=== PATIENT | female | born 1990 | race Caucasian/White ===

== ENCOUNTER 2022-02-02 07:59 | Emergency (ER) | payer MEDICAID, SELFPAY ==
[2022-02-02 08:02] VITALS: BP 124/94; PULSE 101; RESP 17; TEMP 36.3; O2SAT 96; BMI 18.5
--- NOTE | 2022-02-02 08:17 | ED.RN ---
PT. REMEMBERS FEELING FUNNY AND TEXTING BOSS 'I NEED HELP' AND THEN WOKE UP AT HOME.
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
[2022-02-02] MEDS: Diphth,Pertuss(Acell),Tet Vac 0.5 ML Vial IM (08:48)
[2022-02-02] MEDS: LORazepam 1 MG Tablet PO (11:27)
--- NOTE | 2022-02-02 12:35 | ED.RN ---
nurse in with patient for one on one care. pt is interested in detox. dr gilman aware and to address
== END 2022-02-02 13:48 | disposition home or self-care (01) ==
LOC: EDREF 10:46 → ED 11:00
PROVIDERS: Emergency Provider Emergency Medicine; Visit Provider Emergency Medicine
DX: F10.20 Alcohol dependence, uncomplicated (principal); T14.8XXA Other injury of unspecified body region, initial encounter; Y04.8XXA Assault by other bodily force, initial encounter; Z23 Encounter for immunization
CPT/HCPCS: 90715; 99282

== ENCOUNTER 2022-02-02 10:41 | Outpatient (REF) | payer SELFPAY | END 2022-02-02 23:59 | disposition home or self-care (01) | LOC: ED 10:41 | PROVIDERS: Visit Provider Emergency Medicine | DX: Z04.41 Encounter for examination and observation following alleged adult rape (principal) ==

== ENCOUNTER 2022-02-06 08:28 | Inpatient (IN) | payer MEDICAID, SELFPAY ==
[2022-02-06] VITALS (7 sets, daily range): BP systolic 108–131; BP diastolic 74–95; PULSE 63–92; RESP 14–18; TEMP 35.9–37.1; O2SAT 99–100; BMI 18.5; BMI 19.1
--- NOTE | 2022-02-06 08:48 | EDS_ITS ---
HPI History of Present Illness Chief Complaint: Substance Abuse Informant: patient Narrative Narrative: Patient requesting detox from alcohol. She does not use any other substances, but she used to be an IV drug user, which is how she acquired hepatitis C. Years ago she stopped using and transitioned to alcohol, which became a constant issue about 3 years ago, and since then she has been drinking about a pint of hard liquor per day. Her last use was last night, she is feeling shaky like she is in withdrawal this morning which is how she feels every morning. She has not gone through detox for alcohol before. She is not , her last normal menstrual cycle started today. She has some mild abdominal cramping but nothing major, she states this is typical for her cycle. She has had no seizures in her life nor has she this morning. [facility] Medical History Alcoholism Hepatitis C, chronic Home Medications NK 02/06/22 [History Last Taken Unknown] Allergy/AdvReac Type Severity Reaction Status Date / Time No Known Allergies Allergy Verified 02/06/22 08:32 Social History household members: significant other Smoking Status: Current every day smoker tobacco type: cigarettes alcohol intake: current substance use type: does not use ROS ROS ED Constitutional Constitutional ED: Reports malaise; Denies chills or fever(s) Eyes Eyes: Denies change in vision or diplopia ENT ENT ED: Denies rhinorrhea or sore throat Cardiovascular Cardiovascular: Denies chest pain or palpitations Respiratory/Chest Respiratory/Chest: Denies cough or dyspnea Gastrointestinal Gastrointestinal: Reports nausea; Denies abdominal pain, diarrhea or vomiting Genitourinary Genitourinary ED: Denies dysuria or hematuria Musculoskeletal Musculoskeletal: Denies back pain or neck pain Integumentary Denies abscess or rash Neurologic Neurologic: Denies headache(s), paresthesias or weakness Psychiatric Psychiatric: Reports anxiety; Denies suicidal thoughts EXAM Physical Exam Const Vital Signs: 02/06/22 08:30 Temperature 96.6 F L Temperature Source Temporal Pulse Rate 92 Respiratory Rate 14 Blood Pressure 118/95 H Blood Pressure Mean 102 Pulse Ox 99 Oxygen Delivery Method Room Air Positive well nourished and well developed General Appearance ED: well developed and NAD HEENT Reports moist mucous membranes normocephalic and atraumatic Eyes PERRL and EOMs intact bilaterally Neck full ROM and supple Resp normal respiratory effort and clear to auscultation bilaterally Cardio regular rate, regular rhythm and no murmurs GI non-tender and non-distended Auscultation: normoactive bowel sounds Palpation: soft Back/Spine no CVA tenderness General Back: other FROM Extremity normal to inspection General Extremety ED: Negative for edema, pulses abnormal or tenderness General Extremity: Negative for edema or pulses abnormal Neuro oriented x3, CN's II-XII intact bilaterally and no sensory deficits noted Sensorium / Orientation: awake and alert Motor Exam: strength 5/5 throughout Skin no rashes or lesions noted and no wounds MDM MDM MDM Narrative Medical decision making narrative: Labs were obtained, is negative, she was treated with phenobarbital and Zofran and that helped her feel little better. Stable for admission for detox. Discussed with hospitalist. Lab Data Attestation: I reviewed the patient's lab results. Labs: Laboratory Results - last 24 hr 02/06/22 02/06/22 02/06/22 09:40 09:40 09:40 WBC 4.6 RBC 3.84 L Hgb 13.7 Hct 39.2 MCV 102.1 H MCH 35.7 H MCHC 34.9 RDW Std Deviation 45.1 H RDW Coeff of Bobbi 12.0 Plt Count 101 L MPV 10.6 Immature Gran % (Auto) 0.200 Neut % (Auto) 69.2 Lymph % (Auto) 20.2 [place] % (Auto) 6.7 Eos % (Auto) 2.0 Baso % (Auto) 1.7 H Absolute Neuts (auto) 3.2 Absolute Lymphs (auto) 0.93 Nucleated RBC % 0 PT 13.1 INR 1.0 Sodium 140 Potassium 3.7 Chloride 103 Carbon Dioxide 31.0 Anion Gap 6 BUN 7 Creatinine 0.49 L Estim Creat Clear Calc 127.47 Est GFR (MDRD) Af Amer 188 Est GFR (MDRD) Non-Af 155 BUN/Creatinine Ratio 14.3 Glucose 94 Calcium 9.0 Total Bilirubin 1.50 H AST 368 H ALT 139 H Alkaline Phosphatase 110 Total Protein 7.2 Albumin 3.6 Globulin 3.6 Albumin/Globulin Ratio 1.0 Serum , Qual Ur Drug Screen Comment Ethyl Alcohol 02/06/22 02/06/2222 09:40 09:40 10:30 WBC RBC Hgb Hct MCV MCH MCHC RDW Std Deviation RDW Coeff of Bobbi Plt Count MPV Immature Gran % (Auto) Neut % (Auto) Lymph % (Auto) [place] % (Auto) Eos % (Auto) Baso % (Auto) Absolute Neuts (auto) Absolute Lymphs (auto) Nucleated RBC % PT INR Sodium Potassium Chloride Carbon Dioxide Anion Gap BUN Creatinine Estim Creat Clear Calc Est GFR (MDRD) Af Amer Est GFR (MDRD) Non-Af BUN/Creatinine Ratio Glucose Calcium Total Bilirubin AST ALT Alkaline Phosphatase Total Protein Albumin Globulin Albumin/Globulin Ratio Serum , Qual NEGATIVE Ur Drug Screen Comment Ethyl Alcohol < 3.0 Discharge Plan Dx/Rx/DC Orders Clinical Impression: Alcohol dependence, Alcohol withdrawal Disposition Disposition: Acute Care Hospital [facility]
[2022-02-06 09:48] LABS: Absolute Lymphocyte Count 0.93 X10^3/uL (0.83-4.51); Absolute Neutrophil Count 3.2 X10^3/uL (2.0-7.7); Basophil# 0.08 X10^3/uL; Basophil% 1.7 % (0-1); Eosinophil# 0.09 X10^3/uL; Hematocrit 39.2 % (37-47); Hemoglobin 13.7 g/dL (12.0-15.0); Lymphocyte # 0.93 X10^3/ul (0.83-4.51); Lymphocyte % 20.2 % (19-41); Mean Corp Hgb Conc 34.9 g/dL (32-36); Mean Corpuscular Hgb 35.7 pg (27.0-32.0); Mean Corpuscular Volume 102.1 fL (81-99); Mean Platelet Vol. 10.6 fl (6.2-12.0); Monocyte# 0.31 X10^3/uL; Monocyte% 6.7 % (0-10); NRBC Flagged by Analyzer 0 % (0-5); Neutrophil # 3.19 X10^3/uL (2.7-7.7); Neutrophil % 69.2 % (47-70); Platelet Count 101 K/mm3 (150-450); RBC Distribution Width SD 45.1 fl (35.1-43.9); Red Blood Count 3.84 M/mm3 (4.2-5.4); White Blood Count 4.6 K/mm3 (4.4-11.0)
[2022-02-06 09:58] LABS: Prothrombin Time (Protime)PT. 13.1 SECONDS (11.7-14.9)
[2022-02-06 10:03] LABS: AST(SGOT) 368 U/L (15-37); Alanine Aminotransfer ALT/SGPT 139 U/L (13-56); Albumin, Serum 3.6 g/dL (3.2-5.0); Alkaline Phosphatase 110 U/L (45-117); Anion Gap 6 (5-15); BUN 7 mg/dL (7-18); BUN/Creat Ratio 14.3 RATIO (10-20); Chloride 103 mmol/L (98-107); Creatinine, Serum 0.49 mg/dL (0.55-1.02); EST Glomerular Filtration Rate 155 mL/min (>60); Est Glom Filt Rate - Afr Amer 188 mL/min (>60); Estimated Creatinine Clearance 127.47 ml/min; Globulin 3.6 g/dL (2.2-4.2); Glucose 94 mg/dL (74-106); Potassium 3.7 mmol/L (3.5-5.1); Protein, Total 7.2 g/dL (6.4-8.2); Sodium Level 140 mmol/L (136-145)
[2022-02-06 10:09] LABS: Internal QC Validated? YES +Cl - CLEAR BKGD; Pregnancy, Serum, hCG Quali. NEGATIVE Negative
[2022-02-06] MEDS: Ondansetron ODT 4 MG Tablet 8 MG PO (10:16)
[2022-02-06] MEDS: Phenobarbital 32.4 MG Tablet 97.2 MG PO ×5 (10:16→22:52)
[2022-02-06 10:18] LABS: Alcohol, Blood (Medical)-Serum < 3.0 mg/dL
--- NOTE | 2022-02-06 10:51 | HP.PCM.HOS_ITS ---
[facility] - General General Date of Admission: 02/06/22 Date of Service: 02/06/22 Chief Complaint: Alcohol withdrawal symptoms including shaking, nausea. HPI Narrative ARTURO COVINGTON, is a 31 F with history of chronic alcohol use with unsuccessful attempts of quitting came to ED for acute alcohol withdrawal symptoms. Patient wants to quit and wants help. She started drinking alcohol at the age of 11 like experimenting then progressed to drink after work and then daily a pint or more of bourbon whiskey for for last 3 years. Denies history of seizure, DT. Patient also had a history of IV heroin, opioid use, crack cocaine in the past. Denies history of endocarditis or deep tissue infection or osteomyelitis. She occasionally smokes weeds. She also sometimes smokes 2 to 3 cigarettes daily daily. About 2 to 3 months ago she went to [facility] and was told that she has fibrosis and fatty liver. Her liver tests were elevated and she had jaundice. She denies history of GI bleed or ascites. She states he had kidney infection at that time and was treated with antibiotic. Denies any major gynecological problem. Has normal monthly menstrual cycle but sometimes excessive bleeding. History of chronic hepatitis C. [facility] Medical History Alcoholism Hepatitis C, chronic Home Medications NK 02/06/22 [History Last Taken Unknown] Allergy/AdvReac Type Severity Reaction Status Date / Time No Known Allergies Allergy Verified 02/06/22 08:32 Social History household members: significant other Smoking Status: Current every day smoker tobacco type: cigarettes alcohol intake: current substance use type: does not use ROS ROS Narrative Constitutional: Reports fatigue and weakness. No fever HEENT: Reports systems reviewed and no addt'l complaints, except as documented Respiratory/Chest: Denies chest pain, shortness of breath at rest or with exertion Gastrointestinal: Denies coffee ground emesis, hematemesis or vomiting. No abdominal pain or distention. Genitourinary: Denies burning urination or new urinary tract symptoms Musculoskeletal: Mild generalized muscle and joint pain. Neurologic: Denies seizure-like activity skin: No ulcer. No rash Endocrinology: Reports systems reviewed and no addt'l complaints, except as documented Hematologic/Lymphatic: Reports systems reviewed and no addt'l complaints, except as documented Rest 14 ROS are negative except as mentioned in HPI Vital Signs Vital Signs Vital Signs: 02/06/22 08:30 Temperature 96.6 F L Temperature Source Temporal Pulse Rate 92 Respiratory Rate 14 Blood Pressure 118/95 H Blood Pressure Mean 102 Pulse Ox 99 Oxygen Delivery Method Room Air Weight Weight: 108 lb Body Mass Index (BMI) 18.5 Physical Exam Narrative General: Alert, Oriented x3, Cooperative HEENT: Atraumatic, PERRLA, EOMI, Normocephalic Oral: Oral mucosa dry. No Gingival or Mucosal Lesions/ Ulcerations Neck: Supple, No JVD, Negative Carotid Bruits Lungs: Air entry equal in bilateral lung bases. No crepitation/rhonchi Cardiovascular: Regular rate, Regular Rhythm, Normal S1, Normal S2, No murmurs Abdomen: Mild tenderness over epigastric region. Liver not enlarged. No fluid thrill/shifting dullness. Bowel Sounds Present, Soft. : No renal angle tenderness. No suprapubic tenderness. Extremities: No edema, Capillary Refill Less than 3 Seconds Skin: No rashes, No breakdown Musculoskeletal: No Tenderness to Palpation of Joints or Extremities. Muscle strength 5/5 at major joints Neurological: Cranial nerves II-XII grossly intact, DTR 2+/4. No focal neurological deficit. Psych/Mental Status: Normal Affect, Appropriate. Results Lab / Micro Data Result Diagrams: 02/06/22 09:40 02/06/22 09:40 Labs: Laboratory Results - last 24 hr 02/06/22 09:40: WBC 4.6, RBC 3.84 L, Hgb 13.7, Hct 39.2, MCV 102.1 H, MCH 35.7 H , MCHC 34.9, RDW Std Deviation 45.1 H, RDW Coeff of Bobbi 12.0, Plt Count 101 L, MPV 10.6, Immature Gran % (Auto) 0.200, Neut % (Auto) 69.2, Lymph % (Auto) 20.2, Dukes % (Auto) 6.7, Eos % (Auto) 2.0, Baso % (Auto) 1.7 H, Absolute Neuts (auto) 3.2, Absolute Lymphs (auto) 0.93, Nucleated RBC % 0 02/06/22 09:40: PT 13.1, INR 1.0 02/06/22 09:40: Sodium 140, Potassium 3.7, Chloride 103, Carbon Dioxide 31.0, Anion Gap 6, BUN 7, Creatinine 0.49 L, Estim Creat Clear Calc 127.47, Est GFR (MDRD) Af Amer 188, Est GFR (MDRD) Non-Af 155, BUN/Creatinine Ratio 14.3, Glucose 94, Calcium 9.0, Total Bilirubin 1.50 H, AST 368 H, ALT 139 H, Alkaline Phosphatase 110, Total Protein 7.2, Albumin 3.6, Globulin 3.6, Albumin/Globulin Ratio 1.0 02/06/22 09:40: Ethyl Alcohol < 3.0 02/06/22 09:40: Serum , Qual NEGATIVE 02/06/22 10:30: Ur Drug Screen Comment Assessment & Plan Assessment/Plan (1) Alcohol withdrawal: PLAN: Plan This 31-year-old female is being admitted for stabilization of acute alcohol withdrawal symptoms. 1. Acute alcohol withdrawal syndrome with history of chronic alcohol use, dependence and tolerance: Patient is being admitted Medr. On order set of phenobarbital along with other medication for stabilization of alcohol withdrawal symptoms. [facility] monitoring. 180 automotive quality manager consult. Patient is very interested in quitting alcohol. 2 chronic alcoholic hepatitis: AST and ALT are elevated, and present to his 2: 1 ratio. Patient states her liver enzymes were elevated about 3 months ago, labs done in [facility]. She also had ultrasound abdomen which shows fibrosis and fatty liver. We will try to obtain medical record from [facility]. Monitor liver function daily. Total bilirubin 1.5. 3. Chronic nicotine use/cigarette smoking and marijuana: U tox positive for cannabinoids. 4. Chronic hepatitis C: Advised follow-up with Dr. Reich as an outpatient for treatment of chronic hepatitis C. VTE prophylaxis: Low risk. Early ambulation encouraged. Full code Charges/Coding Visit Charges Inpatient E&M: 08416 Init Hosp L3
--- NOTE | 2022-02-06 10:52 | NURSING ---
MED SURG ISELA ALCOHOL DEPENDENCE
[2022-02-06 10:53] LABS: Amphetamine Urine VISTA NEGATIVE (<1000 ng/mL); Barbiturate Urine VISTA NEGATIVE (< 200 ng/mL); Benzodiazepine Urine VISTA NEGATIVE (< 200 ng/mL); Cocaine Urine VISTA NEGATIVE (< 300 ng/mL); Ecstacy Urine VISTA NEGATIVE (< 500 ng/mL); Methadone Urine VISTA NEGATIVE (< 300 ng/mL); PCP Urine VISTA NEGATIVE (< 25 ng/mL); THC Urine VISTA POSITIVE (< 50 ng/mL); Vista UDS pH Range 8
[2022-02-06] MEDS: hydrOXYzine PAM 25 MG Capsule 50 MG PO ×2 (12:30→21:33)
[2022-02-06] MEDS: Pantoprazole Sodium 40 MG Tablet PO ×2 (12:30→19:56)
[2022-02-06] MEDS: Gabapentin 300 MG Capsule PO ×2 (13:49→22:52)
[2022-02-06] MEDS: Lactated Ringers 1,000 ML 125 ML IV (14:39)
[2022-02-06] MEDS: traZODone 100 MG Tablet PO (22:52)
[2022-02-06] MEDS: Ibuprofen 400 MG Tablet PO (22:52)
--- NOTE | 2022-02-06 23:01 | EKG12_ITS ---
Test Reason : CP Blood Pressure : / mmHG Vent. Rate : 066 BPM Atrial Rate : 066 BPM P-R Int : 130 ms QRS Dur : 074 ms QT Int : 424 ms P-R-T Axes : 064 078 068 degrees QTc Int : 444 ms Normal sinus rhythm Normal ECG No previous ECGs available Confirmed by ESTEFANIA MELENDEZ, LUCAS ([id number]), technical writer and editor JORDI SANTANA ([id number]) on 02/08/2022 9:41:27 AM Referred By: ISELA Confirmed By:LUCAS MAC MD
[2022-02-07 00:34] LABS: Troponin-I HS 4 pg/mL (3.0-54.0)
[2022-02-07 02:33] LABS: Troponin-I HS 4 pg/mL (3.0-54.0)
[2022-02-07 03:14] VITALS: BP 87/63; PULSE 56; RESP 16; TEMP 36.4; O2SAT 99
[2022-02-07] MEDS: Phenobarbital 32.4 MG Tablet 97.2 MG PO ×4 (03:20→15:33)
[2022-02-07 06:42] VITALS: BP 102/75; PULSE 59; RESP 16; TEMP 36.7; O2SAT 99
[2022-02-07] MEDS: Folic Acid 1 MG Tablet PO (06:46)
[2022-02-07] MEDS: Thiamine Hydrochloride 100 MG Tablet PO (06:46)
[2022-02-07 07:08] LABS: Troponin-I HS 4 pg/mL (3.0-54.0)
[2022-02-07 08:17] VITALS: BP 104/69; PULSE 54; RESP 16; TEMP 36.8; O2SAT 98
[2022-02-07] MEDS: Pantoprazole Sodium 40 MG Tablet PO (09:07)
--- NOTE | 2022-02-07 09:32 | PN.HOSP_ITS ---
Subjective Subjective Seen and examined. Follow-up for acute alcohol withdrawal syndrome. Patient is still has anxiety attack feeling restless but denies hallucinations or seizures. Objective Data Objective Data Vital Signs: Vital Signs Temp Pulse Resp BP Pulse Ox O2 Del Method 98.3 F 54 L 16 104/69 98 Room Air 02/07/22 08:17 02/07/22 08:17 02/07/22 08:17 02/07/22 08:17 02/07/22 08:17 02/07/22 08:17 Oxygen Delivery Method Room Air Weight: 111 lb 12.39 oz Body Mass Index (BMI) 19.1 Intake & Output: Intake and Output for Last 24 Hours 02/05/22 02/06/22 02/07/22 23:59 23:59 23:59 Intake Total 1000 / 1000 Balance 1000 / 1000 Lab / Micro Data Result Diagrams: 02/06/22 09:40 02/06/22 09:40 Labs: Laboratory Results - last 24 hr 02/06/22 09:40: WBC 4.6, RBC 3.84 L, Hgb 13.7, Hct 39.2, MCV 102.1 H, MCH 35.7 H , MCHC 34.9, RDW Std Deviation 45.1 H, RDW Coeff of Bobbi 12.0, Plt Count 101 L, MPV 10.6, Immature Gran % (Auto) 0.200, Neut % (Auto) 69.2, Lymph % (Auto) 20.2, Edgar % (Auto) 6.7, Eos % (Auto) 2.0, Baso % (Auto) 1.7 H, Absolute Neuts (auto) 3.2, Absolute Lymphs (auto) 0.93, Nucleated RBC % 0 02/06/22 09:40: PT 13.1, INR 1.0 02/06/22 09:40: Sodium 140, Potassium 3.7, Chloride 103, Carbon Dioxide 31.0, Anion Gap 6, BUN 7, Creatinine 0.49 L, Estim Creat Clear Calc 127.47, Est GFR (MDRD) Af Amer 188, Est GFR (MDRD) Non-Af 155, BUN/Creatinine Ratio 14.3, Glucose 94, Calcium 9.0, Total Bilirubin 1.50 H, AST 368 H, ALT 139 H, Alkaline Phosphatase 110, Total Protein 7.2, Albumin 3.6, Globulin 3.6, Albumin/Globulin Ratio 1.0 02/06/22 09:40: Ethyl Alcohol < 3.0 02/06/22 09:40: Serum , Qual NEGATIVE 02/06/22 10:30: Urine Opiates Screen NEGATIVE, Urine Methadone Screen NEGATIVE, Ur Barbiturates Screen NEGATIVE, Ur Phencyclidine Scrn NEGATIVE, Ur Amphetamines Screen NEGATIVE, MDMA (Ecstasy) Screen NEGATIVE, U Benzodiazepines Scrn NEGATIVE, Urine Cocaine Screen NEGATIVE, U Cannabinoids Screen POSITIVE H, Ur Drug Screen Comment 02/06/22 23:52: Troponin I High Sens 4 02/07/22 02:05: Troponin I High Sens 4 02/07/22 06:00: Troponin I High Sens 4 Physical Exam Narrative General: Alert, Oriented x3, Cooperative HEENT: Atraumatic, PERRLA, EOMI, Normocephalic Oral: Oral mucosa dry. No Gingival or Mucosal Lesions/ Ulcerations Neck: Supple, No JVD, Negative Carotid Bruits Lungs: Air entry equal in bilateral lung bases. No crepitation/rhonchi Cardiovascular: Regular rate, Regular Rhythm, Normal S1, Normal S2, No murmurs Abdomen: Tenderness over epigastrium has improved. Liver not enlarged. No f luid thrill/shifting dullness. Bowel Sounds Present, Soft. : No renal angle tenderness. No suprapubic tenderness. Extremities: No edema, Capillary Refill Less than 3 Seconds Skin: No rashes, No breakdown Musculoskeletal: No Tenderness to Palpation of Joints or Extremities. Muscle strength 5/5 at major joints Neurological: Cranial nerves II-XII grossly intact, DTR 2+/4. No focal neurological deficit. Psych/Mental Status: Normal Affect, Appropriate. Assessment & Plan Assessment/Plan (1) Alcohol withdrawal: PLAN: Plan This 31-year-old female is being admitted for stabilization of acute alcohol withdrawal symptoms. 1. Acute alcohol withdrawal syndrome with history of chronic alcohol use, dependence and tolerance: Patient is being admitted MedSurg. On order set of phenobarbital along with other medication for stabilization of alcohol withdrawal symptoms. [facility] monitoring. 180 manager fitness consult. Patient is very interested in quitting alcohol. 02/01: Patient had chest pain/pressure last night. Twelve-lead EKG shows normal sinus rhythm. Serial troponins were negative. Patient having menses. ACS ruled out 2 chronic alcoholic hepatitis: AST and ALT are elevated, and present to his 2: 1 ratio. Patient states her liver enzymes were elevated about 3 months ago, labs done in [facility]. 02/07: Outside labs and ultrasound from [facility] reviewed on placing she also had ultrasound abdomen which shows fibrosis and fatty liver. Patient had noninvasive blood testing and ultrasound abdomen in October 2019 which showed fibrosis stage II and fatty liver on ultrasound. No intrahepatic or extrahepatic biliary duct. Patient had elevated AST ALT obstruction and total bilirubin in October 2021. 3. Chronic nicotine use/cigarette smoking and marijuana: U tox positive for cannabinoids. 4. Chronic hepatitis C: Advised follow-up with Dr. Reich as an outpatient for treatment of chronic hepatitis C. VTE prophylaxis: Low risk. Early ambulation encouraged. Full code Laboratory Results 02/06/22 23:52: Troponin I High Sens 4 02/07/22 02:05: Troponin I High Sens 4 02/07/22 06:00: Troponin I High Sens 4 Charges/Coding Visit Charges Inpatient E&M: 78342 Subs Hosp L2
[2022-02-07] MEDS: hydrOXYzine PAM 25 MG Capsule 50 MG PO (09:43)
[2022-02-07] MEDS: Senna Tablet 2 TABLET PO (11:13)
[2022-02-07 11:32] VITALS: BP 112/82; PULSE 87; RESP 16; TEMP 36.8; O2SAT 100
--- NOTE | 2022-02-07 11:42 | ADDICTION ---
This service writer advisor met with PT to conduct ASAM, MSE, AUDIT, DUDIT assessments and to plan for d/c. PT A+Ox4 and participated actively. All assessments completed and placed in PT's chart. PT plans to f/u with outpatient treatment services and psychiatry. This worker offered resources and is currently contacting places.Will update once found. PT did not indicate a need for transportation post d/c from [facility].
[2022-02-07 14:38] VITALS: BP 106/71; PULSE 77; RESP 16; TEMP 36.9; O2SAT 100
--- NOTE | 2022-02-07 18:15 | NURSING ---
pt stated she cant finish the program she just cant stay till Saturday. pt signed ama papers.
--- NOTE | 2022-02-07 18:18 | PCM.DC.SUM ---
Providers Date of Admission: 02/06/22 Date of Discharge: 02/07/22 Primary Care Physician: No Primary Care Phys Reason For Visit: ALCOHOL WITHDRAWAL Diagnosis Discharge Diagnosis (1) Alcohol withdrawal: Status: Acute Code(s): F10.939 - Alcohol use, unspecified with withdrawal, unspecified Medications at Discharge Home Medications NK 02/06/22 Hospital Course Summary of Care Provided Hospital Course: This 31-year-old female is being admitted for stabilization of acute alcohol withdrawal symptoms. 1. Acute alcohol withdrawal syndrome with history of chronic alcohol use, dependence and tolerance: Patient is being admitted MedSurg. On order set of phenobarbital along with other medication for stabilization of alcohol withdrawal symptoms. CIWA monitoring. [address] sr. social media & mobile manager consult. Patient is very interested in quitting alcohol. 02/01: Patient had chest pain/pressure last night. Twelve-lead EKG shows normal sinus rhythm. Serial troponins were negative. Patient having menses. ACS ruled out 2 chronic alcoholic hepatitis: AST and ALT are elevated, and present to his 2: 1 ratio. Patient states her liver enzymes were elevated about 3 months ago, labs done in [facility]. 02/07: Outside labs and ultrasound from [facility] reviewed on placing she also had ultrasound abdomen which shows fibrosis and fatty liver. Patient had noninvasive blood testing and ultrasound abdomen in October 2019 which showed fibrosis stage II and fatty liver on ultrasound. No intrahepatic or extrahepatic biliary duct. Patient had elevated AST ALT obstruction and total bilirubin in October 2021. 3. Chronic nicotine use/cigarette smoking and marijuana: U tox positive for cannabinoids. 4. Chronic hepatitis C: Advised follow-up with Dr. Reich as an outpatient for treatment of chronic hepatitis C. VTE prophylaxis: Low risk. Early ambulation encouraged. Full code Laboratory Results 02/06/22 23:52: Troponin I High Sens 4 02/07/22 02:05: Troponin I High Sens 4 02/07/22 06:00: Troponin I High Sens 4 Physical Exam Narrative Patient was seen and examined on the day of discharge. Please see progress note. Weight / BMI Weight Weight: 111 lb 12.39 oz Body Mass Index (BMI) 19.1 ABG / Lab / Microbiology Data Result Diagrams: 02/06/22 09:40 02/06/22 09:40 Meaningful Use Info Meaningful Use Diagnoses (Choose all that apply): None applicable Discharge Plan Admission Admit Date/Time: 02/06/22 10:36 Attending Provider: Mack Jean Primary Care Provider: Care Physician,No Primary Discharge Orders/Prescriptions Prescriptions: No Action NK Referrals / Follow Up: Care Physician,No Primary [Primary Care Provider] - Disposition Disposition (needs filled in before D/C Order can be placed): Against Medical Advice Charges/Coding Addendum Addendum: Patient signed AMA. Please cancel the billing charge of the progress note Visit Charges Inpatient E&M: [id number] Disch Hosp
[2022-02-09 12:07] VITALS: BP 106/71; PULSE 77; RESP 16; TEMP 36.9; O2SAT 100
== END 2022-02-07 18:38 | disposition left against medical advice (07) | DRG 770 ==
LOC: ED 09:26 → MS3 11:42
PROVIDERS: Student in an Organized Health Care Education/Training Program; Admitting Provider Internal Medicine; Emergency Provider Emergency Medicine; Visit Provider Internal Medicine
DX: F10.239 Alcohol dependence with withdrawal, unspecified (principal); B18.2 Chronic viral hepatitis C; K74.01 Hepatic fibrosis, early fibrosis; K70.10 Alcoholic hepatitis without ascites; K76.0 Fatty (change of) liver, not elsewhere classified; F17.210 Nicotine dependence, cigarettes, uncomplicated; Z53.29 Procedure and treatment not carried out because of patient's decision for other reasons
CPT/HCPCS: 36415; 80053; 80307; 82077; 84484; 84703; 85025; 85610; 93005; 99281; 99406; J7120

== ENCOUNTER 2024-11-11 07:35 | Emergency (ER) | payer OTHER, SELFPAY ==
[2024-11-11 07:36] VITALS: BP 143/97; PULSE 128; RESP 18; TEMP 37.1; O2SAT 97
--- NOTE | 2024-11-11 08:35 | CT_ITS ---
PROCEDURE: EXTREMITY LOWER WITHOUT CONTRA 11/11/2024 REASON FOR EXAM: INJURY Swelling. Unable to bear weight. TECHNIQUE: Axial CT images of the left knee obtained without intravenous contrast. Coronal and Sagittal reconstruction series were provided. CONTRAST: None One or more dose reduction techniques were used (e.g., Automated exposure control, adjustment of the mA and/or kV according to patient size, use of iterative reconstruction technique). RADIATION DOSE SUMMARY: CTDlvol: 15.35 mGy DLP: 499.6 mGycm COMPARISON: None FINDINGS: Bones: There is evidence of a nondisplaced lateral tibial plateau fracture. There is approximately 1 mm depression of the lateral tibial plateau. Joints: Joint space is well-maintained. Soft Tissues: Moderate-sized joint effusion. CT/Extremity Lower without Contra IMPRESSION: Nondisplaced lateral tibial plateau fracture with a 1 mm depression of the margarita cular surface. Moderate-sized joint effusion. Reading Location: [place] [id number]
--- NOTE | 2024-11-11 08:41 | EX.ED.DYSGE1 ---
HPI History of Present Illness Chief Complaint: Lower Extremity Injury Narrative Narrative: Chief complaint and HPI: Left knee pain. 34-year-old female with no significant past medical history presents for evaluation of left knee pain. Patient states yesterday she fell downstairs in which she landed on her left knee. States she was originally able to ambulate. Patient states she woke up with increased swelling in her left knee with pain and inability to bear weight. Denies any numbness. Denies any injury elsewhere. Has not taken anything for the pain such as Tylenol or ibuprofen. Has used ice intermittently. Review of systems: See HPI Medications: As listed on the chart Allergies: As listed on the chart PFSH: Per chart Vital signs: As listed on the chart. Reviewed. Physical exam: Gen: A&O x3, NAD Head: Normocephalic, atraumatic Eyes: No sclera icterus, conjunctiva clear ENT: Moist mucous membranes Neck: Full range of motion CV: Regular rate Resp: Nonlabored respiration Musc: Full ROM of all extremities except for left lower extremity secondary to injury, no deformity, left knee is swollen and tender to palpation diffusely, no knee instability, prefers knee in extension versus flexion, strength+5/5 in dorsiflexion and plantarflexion, compartments soft, DP/PT pulses +2 bilaterally, sensation intact, thigh and calf nontender to palpation Skin: Warm, dry Neuro: Alert, oriented, grossly intact, sensation intact Psych: Cooperative, appropriate mood and affect [facility] Medical History (Updated 11/11/24 @ 10:[address] Royce Carrion, ) Closed fracture of lateral portion of tibial plateau Anxiety Depression Smoker Alcohol withdrawal Alcohol dependence Hepatitis C, chronic Alcoholism Home Medications ?Medication ?Instructions ?Recorded ?Last Taken ?Type hydrocodone-acetaminophen 5-325mg 1 tab PO Q6H PRN PRN Pain 3 days 11/11/24 Unknown Rx 5mg-325mg #12 TABLETS ondansetron 4 mg disintegrating 4 mg PO Q8H PRN PRN Nausea #10 tabs 11/11/24 Unknown Rx tablet Allergy/AdvReac Type Severity Reaction Status Date / Time No Known Allergies Allergy Verified 02/06/22 08:32 Social History household members: significant other Smoking Status: Current every day smoker tobacco type: cigarettes alcohol intake: current substance use type: does not use EXAM Physical Exam Const Vital Signs: 11/11/24 07:36 Temperature 98.8 F Temperature Source Oral Pulse Rate 128 H Respiratory Rate 18 Blood Pressure 143/97 H Blood Pressure Mean 112 Pulse Ox 97 Oxygen Delivery Method Room Air MDM MDM MDM Narrative Medical decision making narrative: 34-year-old female with no significant past medical history presents for evaluation of left knee pain. Patient states yesterday she fell downstairs in which she landed on her left knee. Was originally able to ambulate. Woke up with increased swelling and inability to bear weight. Has not taken anything for pain. Differential diagnosis includes but is not limited to knee contusion, fracture, sprain, effusion. See physical exam findings. Morphine and Zofran ordered for symptoms. CT of the knee ordered. CT of the knee shows a nondisplaced lateral tibial plateau fracture with a 1 mm depression of the articular surface. Moderate-sized joint effusion. Patient updated with results. She has never seen orthopedics in the past. I spoke with orthopedic on-call Dr. Florence. Plan is to discharge home with knee immobilizer. Follow-up in their office. She will be given crutches as well as narcotic prescription with Zofran. Educated that narcotics can increase constipation. Return back to the ED if symptoms change or worsen. Was made aware that she is nonweightbearing on that extremity. She confirmed understand the plan. Patient stable to discharge home. Impression: 1. Left nondisplaced lateral tibial plateau fracture 2. Knee effusion Radiography Diagnostic Testing: Clinical Impression(s) from Imaging Studies Lower Extremity CT 11/11/24 08:35 IMPRESSION: Nondisplaced lateral tibial plateau fracture with a 1 mm depression of the articular surface. Moderate-sized joint effusion. Reading Location: [facility]- Discharge Plan Triage Chief Complaint: Lower Extremity Injury ED Provider: Royce Carrion Dx/Rx/DC Orders Clinical Impression: Closed fracture of lateral portion of tibial plateau Instructions: ED Fracture, Knee Prescriptions: New hydrocodone-acetaminophen 5-325 mg tablet 1 tab PO Q6H PRN PRN (Reason: Pain) 3 Days Qty: 12 0RF ondansetron 4 mg tablet,disintegrating 4 mg PO Q8H PRN PRN (Reason: Nausea) Qty: 10 0RF Primary Care Provider: Astrid Benjamin Referrals: Ezekiel Florence MD [Med Staff - Active Staff] - 3-5 Days Astrid Benjamin NP-C [Primary Care Provider] - Activity Restrictions/Additional Instructions: Wear knee immobilizer at all times. Follow-up with orthopedic surgeon. Nonweightbearing to the left lower extremity. Narcotics can increase constipation. Okay for ibuprofen. Return back to the ED if symptoms change or worsen. Print Language: Azeri Disposition Disposition: Home, Self Care
[2024-11-11] MEDS: Morphine 4 MG/ML Syringe IV ×2 (08:47→10:50)
[2024-11-11] MEDS: Ondansetron 4 MG/2 ML Vial IV (08:47)
[2024-11-11 09:09] VITALS: BMI 30.2
--- NOTE | 2024-11-11 10:29 | CONS.ORTHO ---
HPI Consult Data Date of Consult: 11/11/24 HPI Narrative HPI Narrative: ARTURO COVINGTON, is a 34 F who presents with a lat tib plateau fracture. NVI per the ED provider. Occurred yesterday. PFS Medical History (Updated 11/11/24 @ 10:30 by Ezekiel Florence MD) Closed fracture of lateral portion of tibial plateau Anxiety Depression Smoker Alcohol withdrawal Alcohol dependence Hepatitis C, chronic Alcoholism Home Medications ?Medication ?Instructions ?Recorded ?Last Taken ?Type NK 02/06/22 Unknown History Allergy/AdvReac Type Severity Reaction Status Date / Time No Known Allergies Allergy Verified 02/06/22 08:32 Social History household members: significant other Smoking Status: Current every day smoker tobacco type: cigarettes alcohol intake: current substance use type: does not use Vital Signs Vital Signs Vital Signs: 11/11/24 07:36 Temperature 98.8 F Temperature Source Oral Pulse Rate 128 H Respiratory Rate 18 Blood Pressure 143/97 H Blood Pressure Mean 112 Pulse Ox 97 Oxygen Delivery Method Room Air Weight Weight: 170 lb 13.732 oz Body Mass Index (BMI) 30.2 Imaging Radiology Impression Lower Extremity CT 11/11/24 08:35 IMPRESSION: Nondisplaced lateral tibial plateau fracture with a 1 mm depression of the articular surface. Moderate-sized joint effusion. Reading Location: [facility]-IR-1 agree, small non displaced tib plateau fracture lateral side. Assessment & Plan Assessment/Plan (1) Closed fracture of lateral portion of tibial plateau: PLAN: 34F with non displaced lateral tib plateau fracture. Recommend non op mgt, knee immobilizer, non WB, FU in clinic 5-7 days. ED doc in agreement.
[2024-11-11 11:10] VITALS: BP 140/90; PULSE 100; RESP 17; TEMP 36.6; O2SAT 100
== END 2024-11-11 11:11 | disposition home or self-care (01) ==
PROVIDERS: Emergency Provider Surgery; PCP Nurse Practitioner Family; Visit Provider Surgery
DX: S82.125A Nondisplaced fracture of lateral condyle of left tibia, initial encounter for closed fracture (principal); W10.9XXA Fall (on) (from) unspecified stairs and steps, initial encounter; M25.462 Effusion, left knee; F17.210 Nicotine dependence, cigarettes, uncomplicated
CPT/HCPCS: 73700; 96374; 96375; 96376; 99285; A4216; J2405

== ENCOUNTER → 2024-11-18 | Outpatient (CLI) | payer OTHER, SELFPAY ==
--- NOTE | 2024-11-18 17:05 | MRI_ITS ---
PROCEDURE: LOWER EXT JOINT ONLY (ROUTINE) 11/18/2024 REASON FOR EXAM: Known tibial PLATEAU FRACTURE, RULE OUT OTHER INJURIES TECHNIQUE: LOWER EXT JOINT ONLY (ROUTINE) T1, T2, PD, multiplanar and multisequence images were obtained without IV contrast administration. COMPARISON: COMPARISON : November 11, 2024 FINDINGS: Bone Marrow: There is a tibial plateau fracture extending through the medial tibial plateau from the anterior margin with components extending into the intercondylar region at the lateral tibial plateau and posterior lateral tibial plateau. There is slight depressed component of the posterior lateral tibial plateau at the intercondylar region, measuring 0.45 cm, coronal image 03/02. The distal femur and fibula appear intact. There is a fluid/fluid level in the joint space consistent with intra-articular blood with a large effusion. Soft Tissues: There is increased T2 signal, thickening and attenuation throughout the medial collateral ligament without laxity, grade 2 sprain. There is increased T2 signal and attenuation of the popliteus at the myotendinous junction and within the popliteus muscle body without full-thickness tear, grade 2 strain. There is edema and attenuation of the lateral collateral ligament with lax components, grade 2-3 sprain. The biceps femoris appears intact. The medial patellar retinaculum shows lax components, grade 2-3 sprain. The lateral patellar retinaculum appears intact. The arcuate ligament shows laxity, grade 3 sprain. There is an effusion at the proximal tibiofibular articulation. The anterior cruciate ligament shows edema in the mid and lower 3rd without lax components, grade 2 sprain. The posterior cruciate appears intact. The distal quadriceps and patellar tendons appear intact. The lateral meniscus appears intact. There is abnormal increased T2 signal throughout the posterior horn and body of the medial meniscus with no definite extension to the articular surface. There is no focal chondromalacia. There is circumferential subcutaneous edema and hemorrhage which extends throughout the anterior, medial, lateral, and posterior soft tissues into the distal thigh and upper calf. There is no discrete hematoma or drainable collection in the soft tissues. The neurovascular structures appear intact. MRI/Lower Ext Joint Only (Routine) IMPRESSION: There is a tibial plateau fracture extending through the medial tibial plateau from the anterior margin with components extending into the intercondylar region at the lateral tibial plateau and posterior later al tibial plateau. There is slight depressed component of the posterior lateral tibial plateau at the intercondylar region, measuring 0.45 cm, coronal image 03/02. There is a fluid/fluid level in the joint space consistent with intra-articular blood with a large effusion. There is increased T2 signal, thickening and attenuation throughout the medial collateral ligament without laxity, grade 2 sprain. There is increased T2 signal and attenuation of the popliteus at the myotendino us junction and within the popliteus muscle body without full-thickness tear, grade 2 strain. There is edema and attenuation of the lateral collateral ligament with lax comp onents, grade 2-3 sprain. The medial patellar retinaculum shows lax components, grade 2-3 sprain. The arcuate ligament shows laxity, grade 3 sprain. There is an effusion at the proximal tibiofibular articulation. The anterior cruciate ligament shows edema in the mid and lower 3rd without lax components, grade 2 sprain. There is abnormal increased T2 signal throughout the posterior horn and body of the medial meniscus with no definite extension to the articular surface. There is circumferential subcutaneous edema and hemorrhage which extends throug hout the anterior, medial, lateral, and posterior soft tissues into the distal thigh and upper calf. Reading Location: [facility]
== END | disposition home or self-care (01) ==
LOC: MRI 17:02
PROVIDERS: PCP Nurse Practitioner Family; Referring Provider Orthopaedic Surgery Sports Medicine; Visit Provider Orthopaedic Surgery Sports Medicine
DX: S82.122A Displaced fracture of lateral condyle of left tibia, initial encounter for closed fracture (principal); X58.XXXA Exposure to other specified factors, initial encounter
CPT/HCPCS: 73721

== ENCOUNTER 2024-12-01 13:30 | Outpatient (RCR) | payer OTHER, SELFPAY ==
--- NOTE | 2024-11-23 17:49 | HP.PTEVAL ---
Patient's Visit Information Visit Information Visit Information: ARTURO COVINGTON is a 34 year old F referred to Physical Therapy by Dr. Ezekiel Florence MD with a diagnosis of L lat tibial plateau fx 11/11/23. Date of Evaluation: 11/23/24 Physical Therapist: Rodrigo Ricks, PT, ATC Visit Plan Frequency: 2x /Week Duration: 4-6 Weeks Plan: Pt is NWBing for 3 weeks and is able to move L knee 0-90 degrees. Then progress ROM and wbing as tolerated. L LE stretching and strengthening, balance and proprio, core strengthening, stair negotiation, gait training, nustep, and HEP Subjective Subjective: DOI: 11/10/24. Pt reports she was walking down the stairs at home when she missed the first step and tumbled down the stairs. Pt reports she was bruised all over, but her L knee is what caused her the most pain. Pt reports her partner helped her up and she went to bed. Pt notes the following morning she went to the ER secondary to the intense pain. Pt had x-rays which revealed a fractured lateral tibial plateau. Pt was ordered to remain NWBing for 4 week, and then is able to ambulate as tolerated. Pt denies any PMHx of L knee pain. Pt reports she experiences intermittent tingling and numbness in her L foot depending on how she holds her foot. 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 Pt only has stairs to the basement and a couple porch steps she is going to have to be able to negotiate. 7/10 pain at rest, 10/10 pain at worst. Pain L knee: Pain Intensity (Out of 10): 7 Pain Intensity Range: 10 Objective Objective: Neuro: B LE sensation is WNL to light touch Pt is unable to ambulate at this time. MMT: R knee flex= 39, ext= 36 #F; L knee flex= 3, ext= 7 #F ROM: R knee 0-135 degrees ; L knee 0-16-85 Balance/Special Test Scores Lower Extremity Functional Score: 13 Goals Goal 1:: Decrease L knee pain x 50% to aid with sleep Goal Time Frame: 4-6 Weeks Goal 2:: Increase L knee ROM x 40 degrees to aid with ambulation Goal Time Frame: 4-6 Weeks Goal 3:: Increase L knee strength to be 95% of R knee strength to aid with stair negotiation Goal Time Frame: 4-6 Weeks Goal 4:: I with HEP Goal Time Frame: 4-6 Weeks Rehabilitation Potential Physical Therapy Diagnosis: Pt has L knee weakness, pain, and limited ROM secondary to L knee fracture Rehabilitation Potential: Good Anticipated Interventions Patient/Client Instruction: Educate patient on: Condition and Plan of Care For the Purpose of:: To improve self management Therapeutic Exercise to Include: Strength training, Endurance training, Balance training, Flexibilty training, Gait and locomotor training, Passive ROM, Active ROM and Dynamic Lumbar Stabilization For the Purpose of:: To decrease pain, To increase ROM and To improve muscle performance and motor function Cryotherapy (ice pack, ice massage): Yes For the Purpose of:: To decrease pain Text: Thank you for the opportunity to evaluate your patient. For Medicare and Medicare HMO plans, please review the plan of care and approve it. It will need to be FAXED BACK to us at [phone] for Medicare purposes. For Medicare only, by signing this I certify the plan of care. Please let me know if there are questions or concerns regarding this plan of care. Physician Signature: Date:
--- NOTE | 2025-03-09 11:45 | HP.PT.NRP ---
Patient Information Patient Information: ARTURO COVINGTON was seen in my office for initial evaluation on 11/23/24. The following Plan of Care was established for this patient: POC Established Initial Frequency: 2x /Week Initial Duration: 4-6 Weeks Anticipated Interventions Patient/Client Instruction: Educate patient on: Condition and Plan of Care For the Purpose of:: To improve self management Therapeutic Exercise to Include: Strength training, Endurance training, Balance training, Flexibilty training, Gait and locomotor training, Passive ROM, Active ROM and Dynamic Lumbar Stabilization For the Purpose of:: To decrease pain, To increase ROM and To improve muscle performance and motor function Cryotherapy (ice pack, ice massage): Yes For the Purpose of:: To decrease pain Last Seen Last Seen: This patient was last seen in our office . Pertinent comments regarding their Physical therapy will appear below: Pt has not returned for greater than 30 days and is discontinued at this time. At this point I will be discontinuing this patient from physical therapy. I would be happy to see this patient again in the future if found appropriate by the physician. Thank you! Rodrigo Ricks, PT, ATC Balance/Gait/Functional tests Balance/Special Test Scores Lower Extremity Functional Score: 13
== END 2024-12-01 19:00 | disposition home or self-care (01) ==
LOC: PT 13:30
PROVIDERS: PCP Nurse Practitioner Family; Referring Provider Orthopaedic Surgery Sports Medicine; Visit Provider Orthopaedic Surgery Sports Medicine
DX: S82.123D Displaced fracture of lateral condyle of unspecified tibia, subsequent encounter for closed fracture with routine healing (principal)
CPT/HCPCS: 97110; 97161